=== PATIENT | female | born 1965 | race Asian ===

== ENCOUNTER 2018-08-27 21:40 | Emergency (ER) | payer OTHER ==
[~2018-08-27] VITALS: Ht 157.5 cm; Wt 56.2 kg
[~2018-08-27 21:40] MED LIST: NO MEDS
[2018-08-27 21:44] VITALS: Ht 157.5 cm; Wt 56.2 kg
--- NOTE | 2018-08-28 01:00 | ERD ---
ER Documentation Chief Complaint Chief Complaint VAG BLEEDING, L SIDE PELVIC PAIN X'S 10 DAYS HPI This is a 52 yo female patient who presents to the ER with note from PMD for evaluation of uterine bleeding in a post-menopausal female. Patient states she has been spotting BRP x 10 days. No other symptoms, no weight loss, no bruising, no nausea/vomitng/diarrhea, no dysuria, no increased fatigue. 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 Fermin). Menopause since 2014. No prior hx of endometriosis, fibroids, heavy or irregular periods. No current hormone use. Gestational history: - vaginal deliveries, no complications. Hx of regular pap smears and mammograms without abnormal results. No family hx of female cancers, father +lymphoma. PMD: Pre[facility]. ROS All systems reviewed and are negative except as per history of present illness. Medications Home Meds Reported Medications [No Meds] No Conflict Check 09/11/15 Allergies Allergies: Coded Allergies: No Known Allergy (Unverified , 09/11/15) PMhx/Soc Medical and Surgical Hx: pt denies Medical Hx History of Surgery: Yes (LEFT OOPHORECTOMY) Anesthesia Reaction: No Hx Neurological Disorder: No Hx Respiratory Disorders: No Hx Cardiac Disorders: No Hx Psychiatric Problems: No Hx Miscellaneous Medical Probl: No Hx Alcohol Use: No Hx Substance Use: No Hx Tobacco Use: No Smoking Status: Never smoker FmHx Family History: No diabetes, No coronary disease, No other Physical Exam Vitals Vital Signs Date Temp Pulse Resp B/P (MAP) Pulse Ox O2 O2 Flow FiO2 Time Delivery Rate 08/28/18 97.8 67 20 134/72 97 Room Air 03:25 (92) 08/27/18 98.2 74 18 135/62 97 21:44 (86) Physical Exam Const: No acute distress Head: Atraumatic Eyes: Normal Conjunctiva, PERRL ENT: Normal External Ears, Nose and Mouth. Neck: Full range of motion. No meningismus.No lymphadenopathy. Resp: Clear to auscultation bilaterally Cardio: Regular rate and rhythm, no murmurs Abd: Soft, non tender, non distended. Normal bowel sounds, no guarding, no bruising. Skin: No petechiae or rashes, no bruising, dry, color consistent with ethnicity Back: No midline or flank tenderness, no CVT Ext: No cyanosis, or edema Neur: Awake and alert, CNII-XII intact, clear speech, steady gait Psych: Normal Mood and Affect Result Diagram: 08/28/1813308/28/18133 Results 24 hrs Laboratory Tests Test 08/28/18 01:34 White Blood Count 6.7 10^3/ul Red Blood Count 4.69 10^6/ul Hemoglobin 13.2 g/dl Hematocrit 40.1 % Mean Corpuscular Volume 85.5 fl Mean Corpuscular Hemoglobin 28.1 pg Mean Corpuscular Hemoglobin Concent 32.9 g/dl Red Cell Distribution Width 12.4 % Platelet Count 259 10^3/UL Mean Platelet Volume 9.7 fl Immature Granulocytes % 0.200 % Neutrophils % 59.9 % Lymphocytes % 28.7 % Monocytes % 7.7 % Eosinophils % 2.6 % Basophils % 0.9 % Nucleated Red Blood Cells % 0.0 /100WBC Immature Granulocytes # 0.010 10^3/ul Neutrophils # 4.0 10^3/ul Lymphocytes # 1.9 10^3/ul Monocytes # 0.5 10^3/ul Eosinophils # 0.2 10^3/ul Basophils # 0.1 10^3/ul Nucleated Red Blood Cells # 0.0 10^3/ul Urine Color STRAW Urine Clarity CLEAR Urine pH 7.0 Urine Specific [place] 1.008 Urine Ketones NEGATIVE mg/dL Urine Nitrite NEGATIVE mg/dL Urine Bilirubin NEGATIVE mg/dL Urine Urobilinogen NEGATIVE mg/dL Urine Leukocyte Esterase 1+ [place]/ul Urine Microscopic RBC 163 /HPF Urine Microscopic WBC 4 /HPF Urine Hemoglobin 3+ mg/dL Urine Glucose NEGATIVE mg/dL Urine Total Protein NEGATIVE mg/dl Sodium Level 146 mmol/L Potassium Level 5.0 mmol/L Chloride Level 107 mmol/L Carbon Dioxide Level 31 mmol/L Anion Gap 8 Blood Urea Nitrogen 13 mg/dl Creatinine 0.67 mg/dl Est Glomerular Filtrat Rate mL/min > 60 mL/min Glucose Level 100 mg/dl Calcium Level 9.2 mg/dl Total Bilirubin 0.6 mg/dl Direct Bilirubin 0.00 mg/dl Indirect Bilirubin 0.6 mg/dl Aspartate Amino Transf (AST/SGOT) 25 IU/L Alanine Aminotransferase (ALT/SGPT) 17 IU/L Alkaline Phosphatase 54 IU/L Total Protein 8.5 g/dl Albumin 4.5 g/dl Globulin 4.00 g/dl Albumin/Globulin Ratio 1.12 Procedures/MDM PROCEDURES/MDM DIAGNOSTIC IMAGING: Read by radiologist. US PELVIS AND TRANSVAG The patient presents with abdominal pain without definite explanation found on evaluation today. However, there are no signs of peritonitis or other life- threatening or serious etiology. The patient appears stable for discharge and has been instructed to return immediately if the symptoms worsen in any way LAB INTERPRETATION: No leukocytosis, no anemia no electrolyte disturbance, no nephropathy, no transaminitis. Urine without ketones, nitrites, leukocyte esterase. MDM: This is a 52 yo female who presents to the ER with request for evaluation of uterine bleeding in post-menopausal woman. Patient is otherwise well-appearing, no chronic medical problems. Presents with her supportive . US results show fibroid and increased measurement of endometrium. 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 Labs and US report provided. Patient is well-appearing, vss at time of discharge and is appropriate for outpatient follow-up. She is to return sooner for fevers, hemorrhaging, new worsening symptoms. Current signs or symptoms do not suggest appendicitis, acute surgical abdomen, additional concerning signs or symptoms or conditions. The patient was stable with no new complaints during the ER course. Clinically, there is no current evidence to suggest meningitis, sepsis, acute abdomen, pneumonia, stroke, acute coronary syndrome, pulmonary embolism, aortic dissection or any other emergent condition appearing to require further evaluation or hospitalization. DISPOSITION and PLAN: RX: none The patient has been discharge home to follow-up with community physician. Departure Diagnosis: Primary Impression: Abnormal vaginal bleeding Condition: Stable MNOIQUE CALIX NP Aug 28, 2018 01:00
[2018-08-28 03:25] VITALS: BP 134/72; PULSE 67; RESP 20
== END 2018-08-28 03:38 | disposition home or self-care (01) ==
LOC: FTE 21:40
DX: N93.9 Abnormal uterine and vaginal bleeding, unspecified (principal)
CPT/HCPCS: 36415; 76830; 76856; 80053; 81001; 85025; Z7502